=== PATIENT | female | born 1960 | race Caucasian/White ===

== ENCOUNTER 2019-05-26 10:58 | Emergency (ER) | payer MEDICARE, OTHER ==
[~2019-05-26] VITALS: Ht 170.2 cm; Wt 68.2 kg
[~2019-05-26 10:58] MED LIST: DIVA500T52 PO
[2019-05-26 11:30] LABS: APPEARANCE,URINE CLOUDY (CLEAR); BILIRUBIN,URINE PRELIM. POSITIVE (NEGATIVE); GLUCOSE, URINE (UA) NEGATIVE (NEGATIVE); KETONES,URINE NEGATIVE (NEGATIVE); LEUKOCYTE ESTERASE ,URINE MODERATE (NEGATIVE); NITRATE,URINE NEGATIVE (NEGATIVE); OCCULT BLOOD,URINE LARGE (NEGATIVE); PROTEIN,URINE SEE CONFIRM (NEGATIVE); UROBILINOGEN,URINE 0.2 mg/dL (<=1.0)
[2019-05-26 11:36] LABS: SULFOSALICYLIC ACID,URINE 1+ (Negative)
[2019-05-26 11:38] LABS: BACTERIA,URINE None Seen /HPF (None Seen); SQUAMOUS EPITHELIAL CELL,UR Few /LPF (None Seen); WBC,URINE 26-50 /HPF (0-5)
[2019-05-26] MEDS ORDERED: PHENAZOPYRIDINE HCL 100 MG TABLET PO ONE (13:15)
[2019-05-26] MEDS ORDERED: SULFAMETHOX/TRIMETH DS 800-160 MG/TABLET PO ONE (13:15)
[2019-05-26] MEDS ORDERED: IBUPROFEN 800 MG TABLET PO ONE (13:15)
[2019-05-26 13:45] VITALS: BP 123/77
== END 2019-05-26 13:47 | disposition home or self-care (01) ==
LOC: EMS 10:59
DX: N39.0 Urinary tract infection, site not specified (principal); F10.20 Alcohol dependence, uncomplicated; F31.9 Bipolar disorder, unspecified; F20.9 Schizophrenia, unspecified; F17.210 Nicotine dependence, cigarettes, uncomplicated; F15.90 Other stimulant use, unspecified, uncomplicated; F11.90 Opioid use, unspecified, uncomplicated; Z79.899 Other long term (current) drug therapy; Z98.890 Other specified postprocedural states
CPT/HCPCS: 87086